=== PATIENT | female | born 1990 | race Caucasian/White ===

== ENCOUNTER 2019-08-03 08:15 | Outpatient (RCR) | payer OTHER, SELFPAY ==
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
--- NOTE | 2019-07-07 15:58 | PT.OPPOC ---
Physical, Occupational & Speech Therapy At [facility] Current Diagnoses Low back pain (07/07/19) Visit Care Team Role Provider Type Amy Ramirez MD Attending Provider Physician Primary Care Provider Specialty: Family Practice Address: [address] [place] [address], [facility] [place], [address] Email: [email or web address] Plan Of Care PT-OP-T Assessment and Plan Start: 07/07/19 11:34 Freq: Status: Active Protocol: Document 07/07/19 13:00 MB (Rec: 07/07/19 15:58 MB [id number]) Physical Therapy Assessment Rehab Potential Rehabilitation Potential Excellent Evaluation Complexity Number of Personal Factors/Comorbidities 1-2 Number of Body Systems Impaired 1-2 Clinical Presentation at Evaluation Evolving Impairments Other Impairments Pt is currently weaning off multiple medications and is hoping to start to try to get in the next 6 weeks. Goals No HEP Technician Semiconductor Development Goal (LTG) Pt will perform progressive HEP including pelvic realignment, postural, flexibility, core, pelvic floor and LE strengthening with I to decrease pain by . LTG Duration 8 weeks Weakness Correction Goal (LTG) Pt will present with B hip flexion and abduction MMT to 5 /5 to improve body mechanics by 09/05/2019. LTG Duration 8 weeks Pain Correction Goal (LTG) Pt will report an 85% improvement in pain to improve quality of life by 09/05/2019. LTG Duration 8 weeks Pain with functional activities Correction Goal (LTG) Pt will present with QuickDASH score reflecting no more than 5% impairment to allow return to work and exercise activities by 09/05/2019. LTG Duration 8 weeks Assessment Summary Assessment Pt is a 29 y/o female presenting presenting with chronic back pain. She initially reports globalized LBP but then isolates to her left thoracic paraspinal area. She presents with postural changes and pelvic obliquities . She also presents with LE weakness and myofascial changes. She will benefit from PT to improve myofascial tension, flexibility and strength. Pt states that she will let therapist know if she gets during PT course. Pelvic floor grinder will also be involved in pt treatment in order to include any pelvic floor/ orthopedic physical therapy as appropriate. Physical Therapy Plan Frequency and Duration Frequency of Treatment 2x/Week Duration of Treatment 8 weeks Plan of Care Start Date 07/07/19 Plan of Care End Date 09/05/19 Therapeutic Interventions Therapeutic Interventions Aquatic Therapy,Balance Training,Home Exercise Program ,Joint Mobilizations,Manual Therapy,Neuromuscular Re- education,Patient/Caregiver Education,Self-Care/Home Management,Sensory Integration ,Soft Tissue Mobilization, Taping,Therapeutic Activities, Therapeutic Exercises Modalities Cold Pack/Ice Massage,Hot Packs Next Visit Focus/Plan Next Note Type Treatment Note Next Visit Plan Initiate pelvic realignment and STM with jarocho fernandes Plan of Care Dates Plan of Care Start Date 07/07/19 Plan of Care End Date 09/05/19 Electronically Signed by: Dodie Ramsey, PT 07/07/19 1198 Please Sign and Return: I have reviewed this Plan of Care and certify that the skilled therapy services above are required to meet the patient?s needs. Physician Signature Date Printed Name and Credentials Clinical Instructor Signature Printed Name and Credentials
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
--- NOTE | 2019-07-13 13:44 | PT-OP ANOTE ---
Pt no showed her appointment today 07/13/19.
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
== END 2019-08-08 13:05 ==
LOC: PHYS 08:15
PROVIDERS: PCP Student in an Organized Health Care Education/Training Program; Visit Provider Student in an Organized Health Care Education/Training Program
DX: M54.5 Low back pain (principal)
CPT/HCPCS: 97110; 97112; 97140; 97161

== ENCOUNTER → 2020-01-13 09:40 | Outpatient (CLI) | payer OTHER, SELFPAY ==
--- NOTE | 2020-01-13 09:43 | DI.US.S_ITS ---
PROCEDURE: US PELVIC COMPLETE INDICATIONS: AMENORRHEA TECHNIQUE: Real-time scanning was performed of the pelvic organs, with image documentation. Additional endovaginal scanning was necessary due to incomplete visualization of the adnexal and endometrial structures by transabdominal scanning. COMPARISON: None. FINDINGS: Transabdominal scanning: Limited scanning through the kidneys shows no hydronephrosis. No pathologic free abdominal or pelvic fluid. Endovaginal scanning: Uterus: Uterus is normal in size at 7.9 x 3.9 x 4.2 cm. The endometrium measures 11 mm in combined thickness. Increased vascularity involving the myometrium. Ovaries: Right ovary measures 5.0 x 2.1 x 2.9 cm and left ovary measures 5.2 x 2.5 x 4.0 cm. There are greater than 12 sub 5 mm follicular cysts present bilaterally. IMPRESSION: 1. Increased vascularity involving the myometrium which can be associated with adenomyosis. If indicated, pre and post contrast gynecologic protocol MRI could be performed for further assessment. 2. Greater than 12 sub-5 mm follicular cysts bilaterally which can be associated with polycystic ovarian syndrome. Dictated by: Vasu JOHNSON Interpreted: Kenisha Chan MD on 01/13/2020 at 12:22 Approved by: Kenisha Chan M.D. on 01/13/2020 at 15:05
== END ==
PROVIDERS: PCP Student in an Organized Health Care Education/Training Program; Referring Provider Obstetrics & Gynecology; Visit Provider Student in an Organized Health Care Education/Training Program
DX: N91.2 Amenorrhea, unspecified (principal); N83.02 Follicular cyst of left ovary; N83.01 Follicular cyst of right ovary
CPT/HCPCS: 76830; 76856

== ENCOUNTER → 2020-01-24 11:31 | Outpatient (CLI) | payer OTHER, SELFPAY ==
[2020-01-24 12:44] LABS: Free T4, Direct Thyroxine 0.81 ng/dL (0.78-2.19)
[2020-01-24 12:45] LABS: Follicle Stimulating Hormone 5.02 mIU/mL
== END ==
PROVIDERS: PCP Student in an Organized Health Care Education/Training Program; Referring Provider Obstetrics & Gynecology; Visit Provider Obstetrics & Gynecology
DX: E28.2 Polycystic ovarian syndrome (principal)
CPT/HCPCS: 36415; 83001; 83002; 84439; 84443

== ENCOUNTER → 2020-03-17 08:17 | Outpatient (CLI) | payer OTHER, SELFPAY ==
--- NOTE | 2020-03-17 | DI.MRI.S_ITS ---
PROCEDURE: MR LUMBAR SPINE WO CON INDICATIONS: Low back pain TECHNIQUE: Noncontrast sagittal T1 spin echo and T2 fast echo, sagittal STIR, axial T1 and T2 fast spin echo through the lumbar spine. In cases with scoliosis, additional coronal T2 fast spin echo may be performed. COMPARISON: None. FINDINGS: Image quality: Excellent. Alignment and Curvature: There is normal bony alignment. Bone Marrow: Marrow is of normal overall signal. No acute vertebral body compression fractures. Spinal Cord: Conus medullaris terminates at the L1 level. Visualized cord demonstrates normal signal and size. Paraspinous Soft Tissues: No paravertebral masses. L1-L2: Normal appearance. L2-L3: Normal appearance. L3-L4: Normal appearance. L4-L5: Normal appearance. L5-S1: Posterior annular fissure. Central disc protrusion is present. There is mild canal narrowing. Partial effacement of both lateral recesses with bilaterally symmetric appearance. No definite foraminal stenosis. IMPRESSION: L5-S1 disc degeneration and mild canal narrowing. No definite foraminal stenosis Dictated by: Noah Sierra M.D. on 03/19/2020 at 10:57 Approved by: Noah Sierra M.D. on 03/19/2020 at 11:00
== END ==
PROVIDERS: PCP Student in an Organized Health Care Education/Training Program; Referring Provider Student in an Organized Health Care Education/Training Program; Visit Provider Student in an Organized Health Care Education/Training Program
DX: M54.5 Low back pain (principal); M51.37 Other intervertebral disc degeneration, lumbosacral region; M48.07 Spinal stenosis, lumbosacral region
CPT/HCPCS: 72148

== ENCOUNTER → 2020-06-14 11:14 | Outpatient (CLI) | payer OTHER, SELFPAY ==
[2020-06-14 12:27] LABS: Final Volume 0.5 mL; Semen 30 min. Liquification? Yes
== END ==
PROVIDERS: PCP Student in an Organized Health Care Education/Training Program; Referring Provider Obstetrics & Gynecology; Visit Provider Obstetrics & Gynecology
DX: N83.9 Noninflammatory disorder of ovary, fallopian tube and broad ligament, unspecified (principal)
CPT/HCPCS: 58323

== ENCOUNTER → 2020-07-02 13:22 | Outpatient (CLI) | payer OTHER, SELFPAY ==
[2020-07-02 16:48] LABS: HCG Quantitative /Beta subunit 1163.9 mIU/mL
== END ==
PROVIDERS: PCP Student in an Organized Health Care Education/Training Program; Referring Provider Obstetrics & Gynecology; Visit Provider Obstetrics & Gynecology
DX: Z34.01 Encounter for supervision of normal first pregnancy, first trimester (principal)
CPT/HCPCS: 36415; 84702

== ENCOUNTER → 2020-07-04 13:13 | Outpatient (CLI) | payer OTHER, SELFPAY ==
[2020-07-04 16:30] LABS: HCG Quantitative /Beta subunit 2640 mIU/mL
== END ==
PROVIDERS: PCP Student in an Organized Health Care Education/Training Program; Referring Provider Obstetrics & Gynecology; Visit Provider Obstetrics & Gynecology
DX: Z34.01 Encounter for supervision of normal first pregnancy, first trimester (principal)
CPT/HCPCS: 36415; 84702

== ENCOUNTER → 2020-08-07 12:10 | Outpatient (CLI) | payer OTHER, SELFPAY ==
[2020-08-07 12:58] LABS: Add Manual Diff / Slide Review NO; Basophils Absolute Auto 0 /uL (0-100); Basophils Percent Auto 0.3 % (0-2); Eosinophils Absolute Auto 100 /uL (0-450); Eosinophils Percent Auto 0.7 % (2-4); Hematocrit 36.4 % (36-46); Hemoglobin 12.5 g/dL (12.0-16.0); Lymphocytes Absolute Auto 2400 /uL (1100-4500); Lymphocytes Percent Auto 22.5 % (25-40); Mean Corpuscular HGB Conc 34.4 % (30-36); Mean Corpuscular Hemoglobin 30.6 PG (26-34); Mean Corpuscular Volume 88.9 fL (80-100); Monocytes Absolute Auto 700 /uL (0-900); Monocytes Percent Auto 6.5 % (3-14); Neutrophils Absolute Auto 7600 /uL (1500-7000); Platelet Count 388 X10^3/uL (150-400); Red Cell Distribution Width 12.5 % (11.6-14.8); White Blood Cell Count 10.8 X10^3/uL (4.5-11.0)
[2020-08-07 13:09] LABS: Appearance Urine UA CLEAR; Bilirubin Urine UA NEGATIVE (NEGATIVE); Color Urine UA YELLOW; Glucose Urine UA NEGATIVE (Negative); Ketones Urine UA NEGATIVE (NEGATIVE); Leukocyte Esterase Urine UA NEGATIVE (NEGATIVE); Nitrite Urine UA NEGATIVE (Negative); Occult Blood Urine UA NEGATIVE (Negative); Protein Urine UA NEGATIVE (Negative); Specific Gravity Urine UA 1.015 (1.000-1.035); Urobilinogen Urine UA 0.2 E.U./dL (0.2)
[2020-08-07 13:16] LABS: pH Urine UA 6.5 (4.5-8.0)
[2020-08-08 08:09] LABS: RPR Screen Non Reactive (Non Reactive)
[2020-08-08 08:44] LABS: Varicella IgG Antibody 663 index (Immune >165)
[2020-08-09 16:45] LABS: HIV 1 & 2 Ab/Ag 4th Gen Combo NEGATIVE (NEGATIVE); Hep C Virus Ab w/Reflex Quant NEGATIVE s/c (NEGATIVE); Hepatitis B Surface Antigen NEGATIVE s/c (NEGATIVE); Rubella Antibody IgG 78.8 IU/mL (>15)
== END ==
PROVIDERS: PCP Student in an Organized Health Care Education/Training Program; Referring Provider Obstetrics & Gynecology; Visit Provider Obstetrics & Gynecology
DX: Z34.01 Encounter for supervision of normal first pregnancy, first trimester (principal); Z36.0 Encounter for antenatal screening for chromosomal anomalies; E28.2 Polycystic ovarian syndrome; N83.9 Noninflammatory disorder of ovary, fallopian tube and broad ligament, unspecified
CPT/HCPCS: 36415; 80055; 81003; 81420; 86787; 86803; 86850; 86900; 86901; 87086; 87389

== ENCOUNTER → 2020-09-05 09:28 | Outpatient (CLI) | payer OTHER, SELFPAY ==
[2020-09-07 00:56] LABS: Chlamydia trachomatis NAA Negative (Negative); Neisseria gonorrhoeae NAA Negative (Negative)
== END ==
PROVIDERS: PCP Student in an Organized Health Care Education/Training Program; Visit Provider Obstetrics & Gynecology
DX: Z34.82 Encounter for supervision of other normal pregnancy, second trimester (principal); Z3A.14 14 weeks gestation of pregnancy
CPT/HCPCS: 87491; 87591

== ENCOUNTER → 2020-09-11 10:25 | Outpatient (CLI) | payer OTHER, SELFPAY ==
[2020-09-11] MEDS: COVID-19 VACC #1, MRNA(MOD) 100 MCG/0.5 ML VIAL IM (10:43)
== END ==
PROVIDERS: PCP Student in an Organized Health Care Education/Training Program; Visit Provider Internal Medicine
DX: Z23 Encounter for immunization (principal)
CPT/HCPCS: 0011A; 91301

== ENCOUNTER → 2020-10-03 09:35 | Outpatient (CLI) | payer OTHER, SELFPAY ==
[2020-10-03 14:11] LABS: Urine N gonorrhoeae NOT DETECTED
[2020-10-03 14:30] LABS: Urine Chlamydia NOT DETECTED
[2020-10-06 20:07] LABS: AFP Value 47.1 ng/mL (.); Gest Age on Col Date 18.4 weeks (.); Insulin Dep Diabetes No (.); OSBR Risk 1IN 10000 (.); Results Report (.); Test Results *Screen Negative* (.)
== END ==
PROVIDERS: PCP Student in an Organized Health Care Education/Training Program; Referring Provider Obstetrics & Gynecology; Visit Provider Obstetrics & Gynecology
DX: Z34.82 Encounter for supervision of other normal pregnancy, second trimester (principal); Z3A.18 18 weeks gestation of pregnancy
CPT/HCPCS: 36415; 82105; 87491; 87591

== ENCOUNTER → 2020-10-10 09:52 | Outpatient (CLI) | payer OTHER, SELFPAY ==
[2020-10-10] MEDS: COVID-19 VACC #2, MRNA(MOD) 100 MCG/0.5 ML VIAL IM (10:05)
== END ==
PROVIDERS: PCP Student in an Organized Health Care Education/Training Program; Visit Provider Internal Medicine
DX: Z23 Encounter for immunization (principal)
CPT/HCPCS: 0012A; 91301

== ENCOUNTER → 2020-10-18 14:14 | Outpatient (CLI) | payer OTHER, SELFPAY ==
--- NOTE | 2020-10-18 14:16 | DI.US.S_ITS ---
PROCEDURE: US OB >= 14 WEEKS FETUS INDICATIONS: ANATOMY OUTSIDE/PRIOR DATING DATA: Last menstrual period (LMP): 05/28/2020. LMP-based estimated date of delivery (GRACE): 03/04/2021 . First dating scan (date and location): 10/18/2020 . Estimated date of delivery (GRACE) from first dating scan: 02/25/2021 . TECHNIQUE: Real-time scanning was performed of the fetus, with image documentation and biometric measurements. Endovaginal scanning: No COMPARISON: [facility], , OB >= 14 WEEKS FETUS, 08/07/2020, 12:05. FINDINGS: General: A single living intrauterine gestation is present. Presentation: Vertex. Placenta: Placental position is anterior , without previa. Amniotic fluid index: 18.2 cm, normal range is 5-24 cm. heart rate: 147 beats per minute. Maternal cervical canal: 3.1 cm long. Normal lower limit is 2.5 cm. biometrics: Biparietal diameter: 21 weeks 5 days Head circumference: 21 weeks 6 days Abdominal circumference: 21 weeks Femur length: 20 weeks 6 days Estimated gestational age from initial scan: not applicable. Composite gestational age from present scan: 21 weeks 3 days Estimated weight and percentile: 397 g; 80th percentile Measurement variability for biometric dating: +/- 7 days from 14 weeks to 15 weeks 6 days gestation, +/- 10 days from 16 weeks to 21 weeks 6 days gestation, +/- 2 weeks from 22 weeks to 27 weeks 6 days gestation, +/- 3 weeks for 28 weeks gestation or later. weight reference: 4500 g or EFW >90/95% is considered macrosomia or large for gestational age. EFW <10% is small for gestational age. EFW 5% or less is considered intra-uterine growth restriction. Anatomic survey: Neuro: Ventricles are non-dilated at less than 10 mm. Cisterna magna is normal at 3-11 mm. Cerebellum is normal in size and morphology. Nuchal skin fold: Normal at less than 6 mm between 14-21 weeks gestational age. Face: Suboptimally visualized. Spine: No evidence for spina bifida. Heart: 4-chambered heart is present, with normal ventricular outflow tracts. Diaphragm: Diaphragm is intact. Stomach: Left-sided stomach is present. Kidneys: No hydronephrosis. Normal is less than 5 mm in 2nd trimester, less than 7 mm in 3rd trimester. Cord: 3-vessel cord has orthotopic insertion. Bladder: Normal in size. Extremities: All 4 extremities identified. IMPRESSION: 1. Single living IUP with mean composite gestational age of 21 weeks 3 days corresponding to ultrasound GRACE of 02/25/2021. 2. face suboptimally visualized; otherwise normal anatomy. Follow-up recommended. Dictated by: Vasu Astorga [facility] Interpreted: Michelle Javier MD on 10/18/2020 at 15:30 Approved by: Michelle Javier MD, PhD on 10/18/2020 at 17:53
== END ==
PROVIDERS: PCP Student in an Organized Health Care Education/Training Program; Referring Provider Obstetrics & Gynecology; Visit Provider Obstetrics & Gynecology
DX: Z34.82 Encounter for supervision of other normal pregnancy, second trimester (principal); Z3A.21 21 weeks gestation of pregnancy
CPT/HCPCS: 76811

== ENCOUNTER → 2020-11-28 10:51 | Outpatient (CLI) | payer OTHER, SELFPAY ==
[2020-11-28 13:00] LABS: Hematocrit 34.4 % (36-46); Hemoglobin 11.5 g/dL (12.0-16.0)
[2020-11-28 13:23] LABS: GTT (PREG) 1 Hour PP 50gm Dose 121 mg/dL (76-139)
== END ==
PROVIDERS: PCP Student in an Organized Health Care Education/Training Program; Referring Provider Obstetrics & Gynecology; Visit Provider Obstetrics & Gynecology
DX: Z34.82 Encounter for supervision of other normal pregnancy, second trimester (principal); Z3A.26 26 weeks gestation of pregnancy
CPT/HCPCS: 36415; 82950; 85014; 85018

== ENCOUNTER 2020-12-28 11:22 | Observation (INO) | payer OTHER, SELFPAY ==
[2020-12-28 11:51] LABS: Bacteria Urine Many (>30); RBC Urine 0-1/HPF (0-5/HPF); Squamous Epithelial Cell Urine 5-10 /HPF (0-5/HPF); WBC Urine 10-30/HPF (0-5/HPF)
--- NOTE | 2020-12-28 13:28 | DI.US.S_ITS ---
PROCEDURE: US OB LIMITED INDICATIONS: PREMATURE CONTRACTIONS. CERVICAL LENGTH/JHOAN/GROWTH/POSITION OUTSIDE/PRIOR DATING DATA: Last menstrual period (LMP): 05/28/2020 . LMP-based estimated date of delivery (GRACE): 03/04/2021 First dating scan (date and location): 10/18/2020 Estimated date of delivery (GRACE) from first dating scan: 03/07/2021 TECHNIQUE: Real-time scanning was performed of the fetus, with image documentation and biometric measurements. Biophysical profile was also obtained. Endovaginal scanning: No COMPARISON: [facility], OB >= 14 WEEKS FETUS, 10/18/2020, 14:24. FINDINGS: General: A single living intrauterine gestation is present. Presentation: Vertex Placenta: Placental position is anterior without previa. Amniotic fluid index: 21.5 cm, normal range is 5-24 cm. heart rate: 139 beats per minute. Maternal cervical canal: 2.2 cm long. Normal lower limit is 2.5 cm. biometrics: Biparietal diameter: 80 mm; 32 weeks 2 days Head circumference: 289 mm; 31 weeks 5 days Abdominal circumference: 283 mm; 32 weeks 2 days Femur length: 62 mm; 32 weeks 0 days Estimated gestational age from initial scan: 31 weeks 4 days Composite gestational age from present scan: 32 weeks 1 day Estimated weight and percentile: 1914 g, which is at the 58th percentile for gestational age Measurement variability for biometric dating: +/- 7 days from 14 weeks to 15 weeks 6 days gestation, +/- 10 days from 16 weeks to 21 weeks 6 days gestation, +/- 2 weeks from 22 weeks to 27 weeks 6 days gestation, +/- 3 weeks for 28 weeks gestation or later. weight reference: 4500 g or EFW >90/95% is considered macrosomia or large for gestational age. EFW <10% is small for gestational age. EFW 5% or less is considered intra-uterine growth restriction. Survey of anatomy currently includes normal chest/diaphragm, stomach/abdomen, bilateral renal regions, and urinary bladder/pelvis. IMPRESSION: 1. Single living intrauterine gestation. 2. Cervical shortening as described above. 3. Appropriate interval growth. Dictated by: Bryan Magallon M.D. on 12/28/2020 at 15:20 Approved by: Bryan Magallon M.D. on 12/28/2020 at 15:25
[2020-12-28] MEDS: BETAMETHASONE 30 MG/5 ML MDV 12 MG IM (14:54)
[2020-12-28 15:16] LABS: Fetal Fibronectin Positive
--- NOTE | 2020-12-28 15:20 | PM.OBHP.1 ---
OB HPI Date/Time Date of admission: 12/28/20 Date Patient Seen: 12/28/20 Time Patient Seen: 15:20 History of Present Condition Chief complaint: OBSERVATION : 2 Para: 0 Estimated Date of Delivery: 03/04/21 Estimated Gestational Age (weeks): 30 Narrative: Brenda Malin is a 30 year old @30+4 by known IUI date consistent with 6 week US, presenting in threatened labor. The patient reports that she began having irregular but increasingly painful contractions this AM, with decreased movement though no vaginal bleeding or loss of fluid. As the contractions became more regular, she presented to L&D for evaluation. She continues to report no VB or LOF, denies fevers, chills, nausea, vomiting, diarrhea, UTI symptoms, headaches, visual changes, abdominal trauma, or any other symptoms. Her has been otherwise uncomplicated, with a normal cervical length of 3.1cm on anatomy scan. She has a history of elective termination in 2014 that was otherwise uncomplicated, and reports a history of abnormal pap smear leading to colposcopy but no cervical conization or other electrophysiology nurse practitioner surgery. This was conceived via IUI due to a history of PCOS. She denies any other significant medical, surgical, family, or social history. Patient denies anything in the vagina in the past 24 hours. History of Present care: good care and initiated at week # (6) Dating criteria: LMP confirmed by 1st trimester US Obstetrical complications: labor Preadmission Labs Blood type: B (+) positive -: Antibody screen: negative, GBS status: unknown (pending), HBsAG: negative, HIV: negative and RPR/VDLR: negative -: Rubella: immune and Varicella: immune PAP: Normal Cell-free DNA: low risk, male fetus Urine: No growth Prior (ies) History: G1: 07/23/14, 8.5 wks, elective , Evaluation Evaluation Baseline heart rate: 145 Variability: Moderate (11-25) monitor accelerations: Present Monitor Decelerations: Variable (rare) Contraction Frequency (minutes): 2 Uterine Contraction Intensity: Strong/Firm Category of Tracing: Reactive Status: Category l Cervical dilation (cm): 1 Cervical effacement (%): 50 station: -1 (soft, mid position) Laboratory results: Laboratory Tests 12/28/20 12/28/20 11:30 13:45 Urine RBC 0-1/hpf Urine WBC 10-30/hpf H Ur Squamous Epith Cells 5-10 /hpf H Urine Bacteria Many (>30) H Ur Culture Indicated? Culture not indicate Micro UA Comment Fibronectin Positive H Comments: brown mucousy show on speculum exam [facility] Medical History ADHD Anxiety Degeneration of lumbar intervertebral disc Disorder of ovulation Polycystic ovaries Surgical History History of elective (~07/2014) Family History Mother No known health problems Preeclampsia Placental abnormality Father Overdose Adopted Grandmother Cancer Breast cancer Grandfather Diabetes mellitus Myocardial infarction Grandmother No known health problems Grandfather No known health problems Family/Other Gestational diabetes PCOS (polycystic ovarian syndrome) Hypertension Family/Other Addiction to drug Brother Mental health problem Social History marital status: household members: spouse lives independently: Yes pets and animals: Yes (X 2 cats and discussed : aware ) 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 ) second hand exposure: No alcohol intake: former (pre- : daily) substance use type: does not use Meds Home Medications and Allergies Home Medications Medication Instructions Recorded Confirmed Type docosahexaenoic acid 200 mg mg PO 07/10/20 11/28/20 History capsule ( DHA) prenat.vits,lin,cdi-tyga-cigam 1 tab PO DAILY 07/10/20 11/28/20 History pantoprazole 40 mg tablet,delayed 40 mg PO DAILY #30 tab 11/28/20 11/28/20 Rx release (Protonix) Allergies Allergy/AdvReac Type Severity Reaction Status Date / Time latex [LATEX] Allergy Unknown RASH Unverified 11/28/20 10:28 Review of Systems Constitutional Constitutional: Reports system reviewed and no additional complaints, except as documented Cardiovascular Cardiovascular: Reports system reviewed and no additional complaints, except as documented Respiratory Respiratory: Reports system reviewed and no additional complaints, except as documented Gastrointestinal Gastrointestinal: Reports as per HPI Genitourinary Genitourinary: Reports as per HPI Neurologic Neurologic: Reports as per HPI Exam Vital Signs (past 8 hours): 133/83, HR 97, T 36.4C, O2 97% on RA Narrative Exam Narrative: Patient resting in bed, visibly anxious, breathing through contractions. Const General: cooperative, healthy appearing, comfortable and well groomed Orientation: alert, awake and oriented x3 Resp Effort & Inspection: normal respiratory effort Auscultation: clear to auscultation bilaterally Cardio Rate: regular rate Rhythm: regular rhythm GI Palpation: soft and No tender Other: Bedside TAUS: Estimated weight and percentile 1914 g, which is at the 58th percentile. JHOAN 25.5. Cervix 2.2cm. External Female Exam: normal external appearance Speculum Exam - Vagina: normal appearance of the vagina and other (brown mucousy blood mixed with mucus ) Presentation: vertex Skin General: no rashes or lesions noted Extrem General: normal to inspection Objective Labs Labs: Laboratory Results - last 24 hr 12/28/20 12/28/20 11:30 13:45 Urine RBC 0-1/hpf Urine WBC 10-30/hpf H Ur Squamous Epith Cells 5-10 /hpf H Urine Bacteria Many (>30) H Ur Culture Indicated? Culture not indicate Micro UA Comment Fibronectin Positive H Assessment and Plan Assessment and Plan Assessment and Plan narrative: This patient is a 30yo @30+4 by known IUI confirmed with 6 week US, presenting with increasingly painful contractions, shortened cervix, and positive FFN concerning for labor. The patient's contractions are increasingly painful and now q2 on L&D, the patient has no signs of infection or abruption, and her contractions have not responded to PO or IV hydration or attempted tocolysis with magnesium sulfate. Given the patient's gestational age and high clinical concern for labor, she is being prepared for transfer to a tertiary care center with a NICU available. The fetus is in vertex presentation with no signs of PPROM. - magnesium sulfate 4g/20 min followed by 2g/hr - 12mg IM betamethasone, 1st dose administered at 1454 on 12/28/20 - PCN 5,000,000u IV loading dose administered now - CBC, T&S, GBS PCR, covid tests pending - IV fluids- LR @125ccs/hr ongoing - Rudolph in place
[2020-12-28 15:30] VITALS: BP 133/83
[2020-12-28] MEDS: MAGNESIUM SULFATE 4 GM/100 ML PIGGYBACK IV (15:43)
[2020-12-28] MEDS: LACTATED RINGERS 1,000 ML 125 ML IV (15:45)
[2020-12-28] MEDS: PENICILLIN G POTASSIUM 5,000,000 UNIT in DEXTROSE 5% IN WATER 250 ML IV (15:58)
[2020-12-28 16:04] LABS: Add Manual Diff / Slide Review YES; Hematocrit 37.4 % (36-46); Hemoglobin 12.7 g/dL (12.0-16.0); Mean Corpuscular HGB Conc 33.9 % (30-36); Mean Corpuscular Hemoglobin 30.8 PG (26-34); Mean Corpuscular Volume 90.8 fL (80-100); Platelet Count 379 X10^3/uL (150-400); Red Blood Cell Count 4.12 X10^6/uL (4.0-5.2); Red Cell Distribution Width 13.5 % (11.6-14.8); White Blood Cell Count 25.8 X10^3/uL (4.5-11.0)
[2020-12-28] MEDS: MAGNESIUM SULFATE 20 GM/500 ML IV.SOLN IV (16:14)
[2020-12-28 16:48] LABS: Neutrophils Absolute Manual 23220 /uL (3000-5900); Total Cells Counted 100
[2020-12-28 16:49] LABS: RBC Morphology Normal Morphology
[2020-12-28 17:08] LABS: Strep Grp B PCR POS for Grp B Strep
[2020-12-28 17:32] LABS: Lactate Dehydrogenase 393 U/L (313-618)
[2020-12-28 17:54] LABS: Bacteria Urine None Seen
[2020-12-28 17:58] LABS: Appearance Urine UA CLEAR; Bilirubin Urine UA NEGATIVE (NEGATIVE); Color Urine UA YELLOW; Glucose Urine UA NEGATIVE (Negative); Ketones Urine UA 2+ (NEGATIVE); Leukocyte Esterase Urine UA NEGATIVE (NEGATIVE); Nitrite Urine UA NEGATIVE (Negative); Occult Blood Urine UA 1+ (Negative); Protein Urine UA NEGATIVE (Negative); Urobilinogen Urine UA 0.2 E.U./dL (0.2)
[2020-12-28 18:00] LABS: pH Urine UA 6.5 (4.5-8.0)
[2020-12-28 18:02] LABS: COVID19 - ADMIT (NP swab/PCR) Negative (Negative)
[2020-12-28 18:08] LABS: RBC Urine 1-5/HPF (0-5/HPF); WBC Urine 0-1/HPF (0-5/HPF)
[2020-12-28 18:09] LABS: Culture Indicated Urine Cult Not Indicated; Squamous Epithelial Cell Urine 0-1 /HPF (0-5/HPF)
== END 2020-12-28 17:30 | disposition short-term general hospital (02) ==
PROVIDERS: Obstetrics & Gynecology; Admitting Provider Obstetrics & Gynecology; PCP Student in an Organized Health Care Education/Training Program; Referring Provider Obstetrics & Gynecology; Visit Provider Obstetrics & Gynecology
DX: O47.03 False labor before 37 completed weeks of gestation, third trimester (principal); Z3A.30 30 weeks gestation of pregnancy; Z20.822 Contact with and (suspected) exposure to COVID-19
CPT/HCPCS: 36415; 59025; 59050; 76815; 76817; 81001; 81015; 82731; 83615; 85007; 85025; 86850; 86900; 86901; 87086; 87635; 87653; 96360; 96372; C9803; G0378; G0379; J0702; J2540; J3475

== ENCOUNTER → 2022-03-31 15:10 | Outpatient (CLI) | payer OTHER, SELFPAY ==
[2022-03-31 18:02] LABS: HCG Quantitative /Beta subunit 17520 mIU/mL
== END ==
PROVIDERS: PCP Student in an Organized Health Care Education/Training Program; Referring Provider Obstetrics & Gynecology; Visit Provider Obstetrics & Gynecology
DX: Z34.90 Encounter for supervision of normal pregnancy, unspecified, unspecified trimester (principal)
CPT/HCPCS: 36415; 84702

== ENCOUNTER → 2022-04-02 12:02 | Outpatient (CLI) | payer OTHER, SELFPAY ==
[2022-04-02 15:22] LABS: HCG Quantitative /Beta subunit 25023 mIU/mL
== END ==
PROVIDERS: PCP Student in an Organized Health Care Education/Training Program; Referring Provider Obstetrics & Gynecology; Visit Provider Obstetrics & Gynecology
DX: Z34.90 Encounter for supervision of normal pregnancy, unspecified, unspecified trimester (principal)
CPT/HCPCS: 36415; 84702

== ENCOUNTER → 2022-04-10 08:38 | Outpatient (CLI) | payer OTHER, SELFPAY ==
--- NOTE | 2022-04-10 08:39 | DI.US.S_ITS ---
PROCEDURE: US OB <= 14 WEEKS FETUS INDICATIONS: DATING AND VIABILITY OUTSIDE/PRIOR DATING DATA: Last menstrual period (LMP): 01/22/2022. LMP-based estimated date of delivery (GRACE): 10/29/2022. First dating scan (date and location): 04/10/2022. Estimated date of delivery (GRACE) from first dating scan: 11/27/2022. TECHNIQUE: Real-time scanning was performed of the fetus and maternal pelvic organs, with image documentation. Endovaginal scanning was also performed to better visualize the fetus and maternal ovaries. COMPARISON: [facility], US, US OB <= 14 WEEKS FETUS, 07/19/2020, 15:03. FINDINGS: Embryo: Single live intrauterine is identified with crown-rump length measuring 1 cm corresponding to 7 weeks 0 days. Heart rate: 143 beats per minute. Maternal organs: Ovaries demonstrate presumed corpus luteal left ovarian cysts.. IMPRESSION: Single live intrauterine measuring 7 weeks 0 days. Given discrepancy by clinical versus ultrasound dating, short interval imaging follow-up for additional interval growth is recommended as clinically indicated. We strive to produce accurate, complete, and clear reports of imaging services. To assist us in improving patient care, this report was composed using standard report templates and voice recognition software. Therefore, it may contain abnormal punctuation, insertions and/or omissions. Occasional wrong-word or sound-alike substitutions may occur. Though we review the report and make efforts to correct it, we do recommend that the report be read carefully in proper context to recognize any text inaccuracies. Dictated by: Kenisha Chan M.D. on 04/10/2022 at 9:59 Approved by: Kenisha Chan M.D. on 04/10/2022 at 13:10
== END ==
PROVIDERS: PCP Student in an Organized Health Care Education/Training Program; Referring Provider Obstetrics & Gynecology; Visit Provider Obstetrics & Gynecology
DX: Z36.87 Encounter for antenatal screening for uncertain dates (principal); Z3A.01 Less than 8 weeks gestation of pregnancy
CPT/HCPCS: 76801; 76817

== ENCOUNTER → 2022-04-29 10:56 | Outpatient (CLI) | payer OTHER, SELFPAY ==
[2022-04-29 12:02] LABS: Add Manual Diff / Slide Review NO; Basophils Absolute Auto 0 /uL (0-100); Basophils Percent Auto 0.4 % (0-2); Eosinophils Absolute Auto 100 /uL (0-450); Eosinophils Percent Auto 0.7 % (2-4); Hematocrit 36.5 % (36-46); Hemoglobin 12.6 g/dL (12.0-16.0); Lymphocytes Absolute Auto 2500 /uL (1100-4500); Lymphocytes Percent Auto 23.9 % (25-40); Mean Corpuscular HGB Conc 34.4 % (30-36); Mean Corpuscular Hemoglobin 29.4 PG (26-34); Mean Corpuscular Volume 85.4 fL (80-100); Monocytes Absolute Auto 500 /uL (0-900); Monocytes Percent Auto 5.2 % (3-14); Neutrophils Absolute Auto 7300 /uL (1500-7000); Neutrophils Percent Auto 69.8 % (50-75); Platelet Count 387 X10^3/uL (150-400); Red Blood Cell Count 4.28 X10^6/uL (4.0-5.2); White Blood Cell Count 10.5 X10^3/uL (4.5-11.0)
[2022-04-29 13:03] LABS: Hepatitis B Surface Antigen NEGATIVE s/c (NEGATIVE)
[2022-04-29 13:35] LABS: HIV 1 & 2 Ab/Ag 4th Gen Combo NEGATIVE (NEGATIVE); Hep C Virus Ab w/Reflex Quant NEGATIVE s/c (NEGATIVE)
[2022-04-29 21:01] LABS: Appearance Urine UA CLOUDY; Bilirubin Urine UA NEGATIVE (NEGATIVE); Color Urine UA YELLOW; Glucose Urine UA NEGATIVE (Negative); Ketones Urine UA NEGATIVE (NEGATIVE); Leukocyte Esterase Urine UA NEGATIVE (NEGATIVE); Nitrite Urine UA NEGATIVE (Negative); Occult Blood Urine UA NEGATIVE (Negative); Protein Urine UA NEGATIVE (Negative); Specific Gravity Urine UA >=1.030 (1.000-1.035); Urobilinogen Urine UA 0.2 E.U./dL (0.2)
[2022-04-30 05:33] LABS: RPR Screen Non Reactive (Non Reactive)
[2022-04-30 09:09] LABS: Varicella IgG Antibody 696 index (Immune >165)
== END ==
PROVIDERS: PCP Student in an Organized Health Care Education/Training Program; Referring Provider Obstetrics & Gynecology; Visit Provider Obstetrics & Gynecology
DX: Z34.81 Encounter for supervision of other normal pregnancy, first trimester (principal)
CPT/HCPCS: 36415; 80055; 81003; 86787; 86803; 86850; 86900; 86901; 87086; 87389

== ENCOUNTER → 2022-05-12 14:17 | Outpatient (CLI) | payer OTHER, SELFPAY ==
[2022-05-12 18:38] LABS: Urine N gonorrhoeae NOT DETECTED
[2022-05-12 18:39] LABS: Urine Chlamydia NOT DETECTED
== END ==
PROVIDERS: PCP Student in an Organized Health Care Education/Training Program; Visit Provider Obstetrics & Gynecology
DX: Z34.81 Encounter for supervision of other normal pregnancy, first trimester (principal); Z3A.11 11 weeks gestation of pregnancy
CPT/HCPCS: 87491; 87591

== ENCOUNTER → 2022-06-19 16:50 | Outpatient (CLI) | payer OTHER, SELFPAY ==
[2022-06-24 14:31] LABS: AFP Value 35.4 ng/mL (.); Gest Age on Col Date 17.1 weeks (.); Insulin Dep Diabetes No (.); OSBR Risk 1IN 10000 (.); Results Report (.); Test Results *Screen Negative* (.)
== END ==
PROVIDERS: PCP Student in an Organized Health Care Education/Training Program; Referring Provider Obstetrics & Gynecology; Visit Provider Obstetrics & Gynecology
DX: Z34.82 Encounter for supervision of other normal pregnancy, second trimester (principal); Z3A.17 17 weeks gestation of pregnancy
CPT/HCPCS: 36415; 82105

== ENCOUNTER → 2022-07-14 15:12 | Outpatient (CLI) | payer OTHER, SELFPAY ==
--- NOTE | 2022-07-14 15:14 | DI.US.S_ITS ---
PROCEDURE: US OB >= 14 WEEKS FETUS INDICATIONS: ANATOMY OUTSIDE/PRIOR DATING DATA: Last menstrual period (LMP): 01/22/22. LMP-based estimated date of delivery (GRACE): 10/29/22. First dating scan (date and location): 04/10/22. Estimated date of delivery (GRACE) from first dating scan: 11/27/22. The calculations are made using the ultrasound GRACE of 11/27/22. TECHNIQUE: Real-time scanning was performed of the fetus, with image documentation and biometric measurements. Endovaginal scanning: Not performed COMPARISON: [facility], , OB <= 14 WEEKS FETUS, 05/12/2022, 14:17[facility] OB >= 14 WEEKS FETUS, 10/18/2020, 14:24. FINDINGS: General: A single living intrauterine gestation is present. Presentation: Vertex. Placenta: Placental position is anterior , without previa. Amniotic fluid index: 15.9 cm, normal range is 5-24 cm. Single deepest vertical pocket is 4.8 cm. heart rate: 149 beats per minute. Maternal cervical canal: Closed and 3.4 cm long. Normal lower limit is 2.5 cm. biometrics: Biparietal diameter: 5.4 cm, 22 weeks, two days Head circumference: 19.9 cm, 22 weeks, 0 days Abdominal circumference: 16.9 cm, 21 weeks, six days Femur length: 3.7 cm, 21 weeks, four days Clinically estimated gestational age: 20 weeks, four days Composite gestational age from present scan: 22 weeks, 0 days Estimated weight and percentile: 452 g, 96th percentile Anatomic survey: Neuro: Ventricles are non-dilated at less than 10 mm. Cisterna magna is normal at 3-11 mm. Cerebellum is normal in size and morphology. Nuchal skin fold: Normal at less than 6 mm between 14-21 weeks gestational age. Face: Nose and lips, facial profile are normal. Spine: No evidence for spina bifida. Heart: 4-chambered heart is present, with normal ventricular outflow tracts. Diaphragm: Diaphragm is intact. Stomach: Left-sided stomach is present. Kidneys: No hydronephrosis. Normal is less than 5 mm in 2nd trimester, less than 7 mm in 3rd trimester. Cord: 3-vessel cord has orthotopic insertion. Bladder: Normal in size. Extremities: All 4 extremities identified. IMPRESSION: 1. Single living intrauterine with symmetric growth. 2. Composite gestational age by today's scan is 10 days ahead of the clinically assigned gestational age and estimated weight at the 96th percentile. 3. Normal anatomy. 4. Closed cervix and normal amniotic fluid volume. We strive to produce accurate, complete, and clear reports of imaging services. To assist us in improving patient care, this report was composed using standard report templates and voice recognition software. Therefore, it may contain abnormal punctuation, insertions and/or omissions. Occasional wrong-word or sound-alike substitutions may occur. Though we review the report and make efforts to correct it, we do recommend that the report be read carefully in proper context to recognize any text inaccuracies. Dictated by: Ct Pedersen M.D. on 07/14/2022 at 17:47 Approved by: Ct Pedersen M.D. on 07/14/2022 at 17:52
--- NOTE | 2022-08-03 22:41 | PM.CALLCOV.1 ---
Call Coverage Note Note Date of Patient Contact: 08/02/22 Time of Patient Contact: 09:00 Narrative of Care Provided: Brenda is a 23 week calling with complaints of nausea, vomiting and chills since last night. This if the first time she's had NVP this . Vomited twice. Feels awful. Unsure what to do. Baby moving well. Denies loss of fluid. No-one else in the house is sick with anything similar. Recommend going to urgent care for evaluation and medication for nausea and vomiting.
== END ==
PROVIDERS: PCP Student in an Organized Health Care Education/Training Program; Referring Provider Obstetrics & Gynecology; Visit Provider Obstetrics & Gynecology
DX: Z34.82 Encounter for supervision of other normal pregnancy, second trimester (principal); Z3A.20 20 weeks gestation of pregnancy
CPT/HCPCS: 76811

== ENCOUNTER → 2022-08-13 15:35 | Outpatient (CLI) | payer OTHER, SELFPAY ==
[2022-08-13 17:03] LABS: Hematocrit 32.4 % (36-46)
[2022-08-13 17:21] LABS: GTT (PREG) 1 Hour PP 50gm Dose 96 mg/dL (76-139)
== END ==
PROVIDERS: PCP Student in an Organized Health Care Education/Training Program; Referring Provider Obstetrics & Gynecology; Visit Provider Obstetrics & Gynecology
DX: Z34.82 Encounter for supervision of other normal pregnancy, second trimester (principal); Z3A.26 26 weeks gestation of pregnancy
CPT/HCPCS: 36415; 82950; 85014; 85018

== ENCOUNTER → 2022-09-09 09:20 | Outpatient (CLI) | payer OTHER, SELFPAY ==
[2022-09-10 08:02] LABS: Strep Grp B PCR NEG for Grp B Strep
== END ==
PROVIDERS: PCP Student in an Organized Health Care Education/Training Program; Visit Provider Specialist
DX: Z34.83 Encounter for supervision of other normal pregnancy, third trimester (principal); Z3A.28 28 weeks gestation of pregnancy
CPT/HCPCS: 87653

== ENCOUNTER → 2022-10-27 15:08 | Outpatient (CLI) | payer OTHER, SELFPAY ==
[2022-10-28 13:38] LABS: Strep Grp B PCR NEG for Grp B Strep
== END ==
PROVIDERS: PCP Student in an Organized Health Care Education/Training Program; Visit Provider Obstetrics & Gynecology
DX: Z34.83 Encounter for supervision of other normal pregnancy, third trimester (principal); Z3A.35 35 weeks gestation of pregnancy
CPT/HCPCS: 87653

== ENCOUNTER 2022-11-09 05:40 | Outpatient (CLI) | payer OTHER, SELFPAY | END 2022-11-09 06:37 | disposition home or self-care (01) | LOC: OB 11-12 11:06 | PROVIDERS: PCP Student in an Organized Health Care Education/Training Program; Referring Provider Obstetrics & Gynecology; Visit Provider Obstetrics & Gynecology | DX: O47.1 False labor at or after 37 completed weeks of gestation (principal); Z3A.37 37 weeks gestation of pregnancy | CPT/HCPCS: 59025; G0378; G0379 ==

== ENCOUNTER → 2022-11-11 08:37 | Outpatient (CLI) | payer OTHER, SELFPAY ==
[2022-11-11 08:54] LABS: Add Manual Diff / Slide Review NO; Basophils Absolute Auto 0 /uL (0-100); Basophils Percent Auto 0.4 % (0-2); Eosinophils Absolute Auto 100 /uL (0-450); Eosinophils Percent Auto 1.4 % (2-4); Hematocrit 33.9 % (36-46); Hemoglobin 11.7 g/dL (12.0-16.0); Lymphocytes Absolute Auto 1900 /uL (1100-4500); Lymphocytes Percent Auto 19.6 % (25-40); Mean Corpuscular HGB Conc 34.6 % (30-36); Mean Corpuscular Hemoglobin 31.3 PG (26-34); Mean Corpuscular Volume 90.4 fL (80-100); Monocytes Absolute Auto 700 /uL (0-900); Monocytes Percent Auto 6.7 % (3-14); Neutrophils Absolute Auto 7100 /uL (1500-7000); Neutrophils Percent Auto 71.9 % (50-75); Platelet Count 258 X10^3/uL (150-400); Red Blood Cell Count 3.75 X10^6/uL (4.0-5.2); Red Cell Distribution Width 14.3 % (11.6-14.8); White Blood Cell Count 9.9 X10^3/uL (4.5-11.0)
[2022-11-11 09:16] LABS: Alanine Aminotransferase 16 IU/L (<35); Aspartate Aminotransferase 22 IU/L (14-36); BUN Creatinine Ratio 8.3 (6-22); Blood Urea Nitrogen 5 mg/dL (7-17); Estimated Glomerular Filt Rate > 60 mL/min (>60); Uric Acid 5.8 mg/dL (2.5-6.2)
[2022-11-11 10:19] LABS: Creatinine Urine Random 96.4 mg/dL; Protein (Total) Urine Random 7 mg/dL (0-12); Protein Creatinine Ratio Urine 0.07 GRAM/24H
== END ==
PROVIDERS: PCP Student in an Organized Health Care Education/Training Program; Referring Provider Obstetrics & Gynecology; Visit Provider Obstetrics & Gynecology
DX: O16.3 Unspecified maternal hypertension, third trimester (principal); Z3A.37 37 weeks gestation of pregnancy
CPT/HCPCS: 36415; 82565; 82570; 84156; 84450; 84460; 84520; 84550; 85025

== ENCOUNTER 2022-11-21 00:56 | Inpatient (IN) | payer OTHER, SELFPAY ==
[2022-11-21] VITALS (7 sets, daily range): BP systolic 110–142; BP diastolic 73–92; PULSE 91–104; RESP 16–18; TEMP 2.2–36.4; O2SAT 97–100
[2022-11-21 01:38] LABS: Add Manual Diff / Slide Review NO; Basophils Absolute Auto 100 /uL (0-100); Basophils Percent Auto 0.5 % (0-2); Eosinophils Absolute Auto 100 /uL (0-450); Eosinophils Percent Auto 0.8 % (2-4); Hematocrit 35.7 % (36-46); Hemoglobin 12.2 g/dL (12.0-16.0); Lymphocytes Absolute Auto 4000 /uL (1100-4500); Mean Corpuscular HGB Conc 34.2 % (30-36); Mean Corpuscular Hemoglobin 30.7 PG (26-34); Mean Corpuscular Volume 89.7 fL (80-100); Monocytes Absolute Auto 1000 /uL (0-900); Monocytes Percent Auto 7.3 % (3-14); Neutrophils Absolute Auto 9000 /uL (1500-7000); Neutrophils Percent Auto 63.4 % (50-75); Platelet Count 321 X10^3/uL (150-400); Red Blood Cell Count 3.99 X10^6/uL (4.0-5.2); White Blood Cell Count 14.2 X10^3/uL (4.5-11.0)
[2022-11-21 01:43] LABS: Aspartate Aminotransferase 22 IU/L (14-36); BUN Creatinine Ratio 10.9 (6-22); Blood Urea Nitrogen 6 mg/dL (7-17); Estimated Glomerular Filt Rate > 60 mL/min (>60); Uric Acid 5.1 mg/dL (2.5-6.2)
[2022-11-21] MEDS: LACTATED RINGERS 1,000 ML 100 ML IV ×4 (02:30→16:35)
[2022-11-21] MEDS: FENT 2MCG/ML BUPIV 0.125% EPI 200 MCG/100 ML PLAST..BAG 8 MCG EPIDURAL ×3 (03:34→14:24)
--- NOTE | 2022-11-21 06:54 | P.HPOB_ITS ---
OB HPI Date/Time Date of admission: 11/21/22 Date Patient Seen: 11/21/22 Time Patient Seen: 01:16 History of Present Condition Chief complaint: LABOR GRACE Calculator Estimated Delivery Date Method Current WG Current Estimate 11/27/22 Ultrasound #1 39w 1d Other Estimates 10/28/22 LMP (Certain) 43w 3d 11/24/22 Ultrasound #2 39w 4d Estimated Gestational Age (weeks): 39.1 : 3 Para: 1 Narrative: 32YO here for evaluation of labor. Awoke at 0030 with leaking clear fluid, followed shortly after by regular contractions. now genna painfully every 2 minutes and requesting and epidural. continues to leak clear fluid. +FM. No vaginal bleeding. No headache, vision changes, RUQ pain or increased edema. care with complicated by cervical shortening and contractions treated with nifedipine. Supportive family at her side. care: good care, initiated at week # (7), number of visits (17) and pounds weight gain (33) Dating criteria OB: LMP confirmed by 1st trimester US Ultrasounds: normal mid trimester US Obstetrical complications: other (shortened cervix at 30wks, on nifedipine) Preadmission Labs Last OB Lab Results: Blood Type B Positive 11/21/22 01:20 Antibody Screen Negative 11/21/22 01:20 Hematocrit 35.7 % (36-46) L 11/21/22 01:20 Hemoglobin 12.2 g/dL (12.0-16.0) 11/21/22 01:20 Hepatitis B Surface Antigen Negative s/c (NEGATIVE) 04/29/22 11 :20 Hepatitis C Antibody Negative s/c (NEGATIVE) 04/29/22 11:20 Rubella Antibody 91.0 IU/mL (>15) 04/29/22 11:20 Varicella-Zoster IgG Antibody 696 index (Immune >165) 04/29/22 11:20 Glucose 1 Hour 96 mg/dL (76-139) 08/13/22 15:40 Group B Streptococcus (PCR) Neg for grp b strep 10/27/22 15:08 Prior (ies) Past Pregnancies Del. Date GA/Weeks Labor Lgth Wt Sex Route Outcome Anesthesia Place Delv Breastfeed Preg Comp Name 07/23/14 8.5 elective elective 12/30/20 30 48 1.814 kg Male vaginal live - [facility] Still going as of 04/09/22 delivery [place] Delivery Date: 07/23/14 Last Updated by: Mary Jane Aranda R.N. *Unsure of exact dates. *Struggled after : in therapy. Evaluation Evaluation Baseline heart rate: 120 Variability: Moderate (11-25) monitor accelerations: Present Monitor Decelerations: Variable Contraction Frequency (minutes): 2 Uterine Contraction Intensity: Strong/Firm Status: Category ll (overall reassuring) Dilation (cm): 5 Effacement (%): 100 Dilation: >/=5 cm Effacement: >/=80% station: -1 Position of cervix: posterior Consistency: soft Velez score: 10 Non-invasive Membranes Rupture Test: positive [facility] Medical History ADHD Anxiety Degeneration of lumbar intervertebral disc Disorder of ovulation Polycystic ovaries Surgical History History of elective (~07/2014) Family History Mother No known health problems Preeclampsia Placental abnormality Father Overdose Adopted Bipolar disorder Substance abuse Grandmother Breast cancer Grandfather Diabetes mellitus Myocardial infarction Family/Other Gestational diabetes PCOS (polycystic ovarian syndrome) Hypertension Family/Other Addiction to drug Brother Mental health problem Social History marital status: number of children: 1 household members: spouse and children lives independently: Yes pets and animals: Yes (X 2 cats and discussed : aware of toxo) education level: vocational occupational status: employed and previously employed current occupational exposures/hazards: No special marques needs: No travel history: over 6 months ago seatbelt use: always water heater temp set < 120 deg: Yes working smoke detector in home: Yes fire extinguisher in home: Yes carbon monox detector in home: Yes firearms in home: No do you feel safe at home: Yes Smoking Status: Never smoker Smokeless tobacco user: dissolvable tobacco (Vape X 3 years : Quit X 2 years ago. ) second hand exposure: No alcohol intake: former (2 drinks/night when not ) substance use type: does not use during the past year weight has: remained stable well-balanced diet: daily or most days daily servings fruits/ve-4 caffeine: Yes Type(s) of exercise: walking frequency: daily duration: 30-45 minutes/day Meds Home Medications and Allergies Home Medications Medication Instructions Recorded Confirmed Type docosahexaenoic acid 450 mg 450 mg PO DAILY 04/09/22 11/11/22 History capsule (Algal-900 DHA) prenat.vits,lin,sqq-vclc-hdbcf 1 tab PO DAILY 04/09/22 11/11/22 History progesterone micronized 200 mg 200 mg PO BEDTIME 14 days #30 caps 06/19/22 11/11/22 Rx capsule (Prometrium) Allergies Allergy/AdvReac Type Severity Reaction Status Date / Time latex [LATEX] Allergy Unknown RASH Verified 11/21/22 02:59 Review of Systems Review of Systems ROS: Yes All systems reviewed with the patient and are negative except as otherwise documented OB Exam Vital signs Blood Pressure: 142/92 Pulse Rate: 91 Temperature: 35.9 F Resp Effort & Inspection: normal respiratory effort and able to speak in complete se ntences Cardio Rate: regular rate Rhythm: regular rhythm Presentation: vertex Objective Labs 11/21/22 01:20 11/21/22 01:20 Labs: Laboratory Results - last 24 hr 11/21/22 11/21/22 11/21/22 01:20 01:20 01:20 WBC 14.2 H RBC 3.99 L Hgb 12.2 Hct 35.7 L MCV 89.7 MCH 30.7 MCHC 34.2 RDW 14.0 Plt Count 321 Neut % (Auto) 63.4 Lymph % (Auto) 28.0 Jerauld % (Auto) 7.3 Eos % (Auto) 0.8 L Baso % (Auto) 0.5 Neut # (Auto) 9000 H Lymph # (Auto) 4000 Jerauld # (Auto) 1000 H Eos # (Auto) 100 Baso # (Auto) 100 BUN 6 L Creatinine 0.55 Estimated GFR > 60 BUN/Creatinine Ratio 10.9 Uric Acid 5.1 AST 22 Blood Type B Positive Antibody Screen Negative Assessment and Plan Assessment and Plan Assessment and Plan narrative: A: Term primipara Active labor SROM x 1 hour without sx of infection Elevated BP without dx of HTN No indication for GBS prophylaxis Cat II FHR, overall reassuring P: Admit routine orders. Epidural ARMANI. Preeclampsia panel drawn and negative. Expectant management of labor. Anticipate NSVB. Reassess in 4-6 hours or sooner, PRN.
[2022-11-21] MEDS: FUROSEMIDE 40 MG/4 ML VIAL 10 MG IV (12:02)
[2022-11-21] MEDS: OXYTOCIN PREMIX 30 UNIT/500 ML PLAST..BAG IV (13:38)
[2022-11-21] MEDS: LABETALOL 20 MG/4 ML SYRINGE 5 MG IV (15:34)
--- NOTE | 2022-11-21 15:40 | PM.OBPNLAB ---
Date/Time Date Patient Seen: 11/21/22 Time Patient Seen: 11:00 Pain Control Pain control: epidural Pelvic Exam Dilation (cm): 10 Effacement (%): 100 station: -1 Amniotic membrane status: Ruptured (0700 clear fluid) Comments: OP by digital exam and confirmed by u/s Contractions Contractions on admission: regular Monitor mode: External Contraction frequency (min): 3 Contraction duration (min): 1 Contraction pattern: Regular Contraction intensity: Strong/Firm Status status: Category ll (overall reassuring) Heart Rate Baseline: 120 Monitor Accelerations: Present Monitor Decelerations: Absent Monitor Variability: Moderate Assessment and Plan Assessment: active labor Comments: Plan: Side to side with peanut ball Hands and knees No pushing for now
--- NOTE | 2022-11-21 15:40 | PM.OBPNLAB ---
Date/Time Date Patient Seen: 11/21/22 Time Patient Seen: 15:40 Pain Control Pain control: epidural Pelvic Exam Dilation (cm): 10 Effacement (%): 100 station: -1 Amniotic membrane status: Ruptured Comments: Pt has pushed x 1 hr, stopped and tried position changes, then pushed x 2 more hours Contractions Monitor mode: External Contraction frequency (min): 3 Contraction duration (min): 1 Contraction pattern: Regular Contraction intensity: Strong/Firm Status status: Category ll (overall reassuring) Heart Rate Baseline: 120 Monitor Accelerations: Present Monitor Decelerations: Absent Monitor Variability: Moderate Assessment and Plan Assessment: active labor Plan: Comments: Assessment: 32-year-old 3 para 1 at 39 and 1/7 weeks gestation in active labor Stage II arrest of labor Direct occiput posterior presentation Plan: Primary low-transverse section The risks, benefits, and alternatives to the procedure were explained to the patient. The risks including bleeding, infection, injury to the bowel, bladder, or ureters. She understands these risks and agrees to proceed. A full par Q was held and consent form was signed.
--- NOTE | 2022-11-21 15:40 | PM.PREOP ---
Pre-operative Note COVID-19 Criteria for continued procedure: Non-surgical alternatives not available or appropriate per current SOC Interval Note History & Physical reviewed/Exam performed by Physician: Yes Changes to H&P: No H&P completed within 30 days and has changed as indicated here:: 11/21/22
[2022-11-21] MEDS: CEFAZOLIN 2 GM/100 ML PREMIX 100 ML IV (16:02)
[2022-11-21] MEDS: AZITHROMYCIN 500 MG in DEXTROSE 5% IN WATER 250 ML 250 MG IV (16:07)
--- NOTE | 2022-11-21 16:39 | SUR.OPER ---
Supine on Padded OR bed, head on pillow, safety belt at thigh, arms secured on padded arm boards at <90 degrees abduction. Bump under right buttock. Legs uncrossed with pillow under knees, gel pad to heels, tape over blanket to lower legs. Gel pad placed between patients posterior upper leg and urinary catheter tubing.
--- NOTE | 2022-11-21 17:38 | PM.OBCS.1 ---
Operative Date/Time/Diagnoses Date of procedure: 11/21/22 Time of procedure: 17:38 Pre-op diagnosis: Stage 2 arrest of labor Direct occiput posterior presentation Post-op diagnosis: same Procedure & Clinicians Procedure: Primary low-transverse section Same procedure as scheduled: Yes Indications: Stage II arrest of labor Surgeon: Zenaida Fabian Environmental Studies Department Chair: Teja Allen Reason for Environmental Studies Department Chair: The dietitian assistant was necessary to retract upon entry into the abdomen and uterus. He assisted with delivery of the with fundal pressure. He assisted with closure with retraction and clipping of suture. Anesthesia Type: Epidural Operative Notes Findings: Live female infant in the direct OP presentation Normal uterine, tubes and ovaries Edema of the bladder Narrow pelvic inlet Closure Type: primary Specimen(s): cord blood and placenta Intraoperative meds administered: Duramorph and Pitocin Applied: Catheter (To continuous drainage) Estimated Blood Loss (mL): 1,000 Blood products transfused: none Procedure in detail: The patient was taken to the operating room where she was placed in the dorsal supine position with a leftward tilt. A bolus was placed through the epidural. The head was elevated from below using a sterile glove. She was prepped and draped in the usual sterile fashion. A timeout was performed. After epidural analgesia was found to be adequate, a Pfannenstiel skin incision was made 2 fingerbreadths above the pubic symphysis and carried through to the underlying layer fascia. The fascia was nicked in the midline, and the incision extended bilaterally with the Holley scissors. The superior aspect of the fascial incision was grasped with a Armani clamps, elevated, and the underlying rectus muscles dissected off sharply and bluntly. Attention was then turned to the inferior aspect of this incision which in a similar fashion was grasped with a [place] clamps, elevated, and the underlying rectus muscles dissected off sharply and bluntly. The rectus muscles were in the midline. The peritoneum was identified, grasped between 2 hemostats, and entered sharply with the Metzenbaum scissors. This incision was extended superiorly and inferiorly with good visualization of the bladder. The bladder blade was inserted. The vesicouterine peritoneum was identified, grasped with the pickup, and entered sharply with the Metzenbaum scissors. This incision was extended bilaterally, and the bladder flap was created digitally. The bladder blade was reinserted. The lower uterine segment was incised in a transverse fashion with the scalpel. Upon entering the amniotic sac there was a small amount of clear amniotic fluid. The infant's head was delivered without difficulty. The nose and mouth were suctioned with bulb suction. The remainder of the body delivered without difficulty. The cord was double clamped and cut. The was handed off to waiting RN and RT. The placenta was delivered manually. The uterus was cleared of all clots and debris. The uterine incision was repaired with #1 chromic in a running interlocking fashion, and a second layer the same suture was used for an imbricating layer. There was bleeding noted from the right edge of the incision and 2 [id number] sutures were placed for hemostasis. The tubes and ovaries were examined and were found to be normal. The gutters were cleared of all clots and debris. The bladder flap was reapproximated using 2-0 Vicryl in a running fashion. The parietal peritoneum was closed using 2-0 Vicryl in a running fashion. The fascia was reapproximated using 0 Vicryl in a running fashion. The subcutaneous layer was copiously irrigated with warm normal saline. 6 simple interrupted sutures of 3-0 Vicryl were placed to reapproximate the subcutaneous layer. The skin was closed with 4-0 undyed Vicryl in a subcuticular fashion. Steri-Strips were placed. An Aquacel dressing was placed. The uterus was expressed of a moderate amount of old blood. Sponge, lap, and instrument counts were correct x-2. The patient tolerated the procedure well, and was taken to PACU in stable condition. Complications: none Baby 1: Gender: Female Presentation: vertex Position: Occiput Posterior Placental Delivery Description: Expressed Cord Vessel Description: 3 Vessels score (1 min): 9 score (5 min): 9 weight: 9 lb 1 oz Post-operative Condition: stable Disposition: PACU Aftercare: routine postop
[2022-11-21] MEDS: MORPHINE 4 MG/ML INJ 2 MG IV (17:56)
[2022-11-21] MEDS: OXYCODONE IR 10 MG TABLET PO ×2 (18:57→22:56)
[2022-11-21 19:14] LABS: Hematocrit 28.7 % (36-46); Hemoglobin 9.9 g/dL (12.0-16.0); Mean Corpuscular HGB Conc 34.5 % (30-36); Mean Corpuscular Volume 89.8 fL (80-100); Platelet Count 258 X10^3/uL (150-400); White Blood Cell Count 26.8 X10^3/uL (4.5-11.0)
[2022-11-21 19:15] LABS: Add Manual Diff / Slide Review YES
[2022-11-21 19:20] LABS: Alanine Aminotransferase 13 IU/L (<35); BUN Creatinine Ratio 10.8 (6-22); Blood Urea Nitrogen 11 mg/dL (7-17); Calcium 7.5 mg/dL (8.4-10.2); Carbon Dioxide 21 mmol/L (22-32); Chloride 102 mmol/L (98-107); Estimated Glomerular Filt Rate > 60 mL/min (>60); Glucose 94 mg/dL (70-100)
[2022-11-21 19:21] LABS: Uric Acid 5.9 mg/dL (2.5-6.2)
[2022-11-21 19:35] LABS: HEMOLYSIS < 15 (0-50); Potassium 4.3 mmol/L (3.4-5.1); Sodium 128 mmol/L (137-145)
[2022-11-21 19:45] LABS: Neutrophils Absolute Manual 21708 /uL (3000-5900); RBC Morphology Normal Morphology; Total Cells Counted 100
[2022-11-22] MEDS: MORPHINE 2 MG/ML INJ IV (01:34)
[2022-11-22] MEDS: OXYCODONE IR 10 MG TABLET PO ×4 (04:30→21:02)
[2022-11-22] MEDS: ACETAMINOPHEN 325 MG TABLET 650 MG PO ×3 (06:21→21:03)
[2022-11-22 08:17] LABS: Add Manual Diff / Slide Review NO; Basophils Absolute Auto 0 /uL (0-100); Basophils Percent Auto 0.1 % (0-2); Eosinophils Absolute Auto 100 /uL (0-450); Eosinophils Percent Auto 0.6 % (2-4); Hematocrit 24.4 % (36-46); Hemoglobin 8.3 g/dL (12.0-16.0); Lymphocytes Absolute Auto 2700 /uL (1100-4500); Lymphocytes Percent Auto 14.4 % (25-40); Mean Corpuscular HGB Conc 33.9 % (30-36); Mean Corpuscular Hemoglobin 30.6 PG (26-34); Mean Corpuscular Volume 90.2 fL (80-100); Monocytes Absolute Auto 1300 /uL (0-900); Monocytes Percent Auto 6.9 % (3-14); Neutrophils Absolute Auto 14400 /uL (1500-7000); Platelet Count 229 X10^3/uL (150-400); Red Blood Cell Count 2.71 X10^6/uL (4.0-5.2); Red Cell Distribution Width 14.2 % (11.6-14.8); White Blood Cell Count 18.5 X10^3/uL (4.5-11.0)
[2022-11-22] MEDS: PRENATAL VIT,CALC/IRON/FOLIC 1 TABLET 1 TAB PO (09:17)
[2022-11-22] MEDS: DOCUSATE 100 MG CAPSULE 200 MG PO ×2 (09:17→21:01)
[2022-11-22] MEDS: LANOLIN OINT 7 GM 1 APPLIC TOP (09:17)
[2022-11-22 10:20] VITALS: TEMP 36.7
[2022-11-22] MEDS: KETOROLAC 30 MG/ML VIAL IV ×3 (10:20→22:30)
--- NOTE | 2022-11-22 12:04 | P.PNOB_ITS ---
Subjective - OB Subjective Patient comments: incisional pain, tolerating diet and other (hip pain) baby status: doing well and nursing well feeding status: exclusively breast feeding Date Patient Seen: 11/22/22 Time Patient Seen: 12:12 Interval history: POD#1 s/p Primary low transverse C section for Stage 2 arrest of labor. Voided without the catheter. Tolerating diet. Out of bed to chair Exam Vital Signs (past 8 hours): - 11/22/22 10:20 Temperature 98.0 F Oxygen Delivery Method Room Air Narrative Exam Narrative: Generally: Sitting up in chair, NAD Lungs: CTA bilat CV: RRR. Fundus: Firm at U Incision: C/D/I with Aquacel Ext: 1+ edema Objective Labs 11/22/22 08:10 11/21/22 18:40 Labs: Laboratory Results - last 24 hr 11/21/22 11/21/22 11/21/22 18:40 18:40 18:40 WBC 26.8 H D RBC 3.20 L Hgb 9.9 L Hct 28.7 L MCV 89.8 MCH 31.0 MCHC 34.5 RDW 14.0 Plt Count 258 Neut % (Auto) Not Reportable Lymph % (Auto) Not Reportable [place] % (Auto) Not Reportable Eos % (Auto) Not Reportable Baso % (Auto) Not Reportable Neut # (Auto) Lymph # (Auto) Not Reportable [place] # (Auto) Not Reportable Eos # (Auto) Baso # (Auto) Not Reportable Total Counted 100 Seg Neutrophils % 79.0 H Band Neutrophils % 2.0 L Lymphocytes % (Manual) 10.0 L Monocytes % (Manual) 9.0 Neutrophils # (Manual) 13476 H RBC Morphology Normal morphology Sodium 128 L Potassium 4.3 Chloride 102 Carbon Dioxide 21 L BUN 11 Creatinine 1.02 Estimated GFR > 60 BUN/Creatinine Ratio 10.8 Glucose 94 Uric Acid 5.9 Calcium 7.5 L ALT 13 11/22/22 08:10 WBC 18.5 H RBC 2.71 L Hgb 8.3 L Hct 24.4 L MCV 90.2 MCH 30.6 MCHC 33.9 RDW 14.2 Plt Count 229 Neut % (Auto) 78.0 H Lymph % (Auto) 14.4 L [place] % (Auto) 6.9 Eos % (Auto) 0.6 L Baso % (Auto) 0.1 Neut # (Auto) 12955 H Lymph # (Auto) 2700 [place] # (Auto) 1300 H Eos # (Auto) 100 Baso # (Auto) 0 Total Counted Seg Neutrophils % Band Neutrophils % Lymphocytes % (Manual) Monocytes % (Manual) Neutrophils # (Manual) RBC Morphology Sodium Potassium Chloride Carbon Dioxide BUN Creatinine Estimated GFR BUN/Creatinine Ratio Glucose Uric Acid Calcium ALT Assessment & Plan Plan day: 1 Comments: Elevate the pelvis Ambulate Lasix later today or tomorrow Repeat CBC and BMP later today Time Spent With Patient Time: Total time spent is greater than 50% in coordination of care (as documented) at patient's floor/unit and/or counseling patient: Time with patient: 15-24 minutes
[2022-11-22 15:54] LABS: Hematocrit 25.1 % (36-46); Hemoglobin 8.5 g/dL (12.0-16.0); Mean Corpuscular Hemoglobin 30.6 PG (26-34); Mean Corpuscular Volume 90.1 fL (80-100); Platelet Count 247 X10^3/uL (150-400); Red Blood Cell Count 2.78 X10^6/uL (4.0-5.2); Red Cell Distribution Width 13.8 % (11.6-14.8); White Blood Cell Count 18.6 X10^3/uL (4.5-11.0)
[2022-11-22 16:07] LABS: BUN Creatinine Ratio 10.1 (6-22); Blood Urea Nitrogen 9 mg/dL (7-17); Calcium 7.9 mg/dL (8.4-10.2); Carbon Dioxide 26 mmol/L (22-32); Chloride 102 mmol/L (98-107); Estimated Glomerular Filt Rate > 60 mL/min (>60); Glucose 101 mg/dL (70-100); HEMOLYSIS < 15 (0-50); Potassium 4.2 mmol/L (3.4-5.1); Sodium 130 mmol/L (137-145)
[2022-11-23] MEDS: OXYCODONE IR 5 MG TABLET PO ×3 (02:01→10:45)
[2022-11-23] MEDS: ACETAMINOPHEN 325 MG TABLET 650 MG PO ×3 (02:57→09:36)
[2022-11-23] MEDS: KETOROLAC 30 MG/ML VIAL IV (04:34)
[2022-11-23] MEDS: DOCUSATE 100 MG CAPSULE 200 MG PO (09:36)
[2022-11-23] MEDS: PRENATAL VIT,CALC/IRON/FOLIC 1 TABLET 1 TAB PO (09:36)
[2022-11-23] MEDS: IBUPROFEN 600 MG TABLET PO (12:23)
[2022-11-23] MEDS: FUROSEMIDE 20 MG TABLET PO (12:24)
--- NOTE | 2022-11-23 13:23 | P.DS_ITS ---
Discharge Providers Provider Date of admission: 11/21/22 00:56 Discharge Date: 11/23/22 Primary care physician: Amy Ramirez MD Consults: 11/21/22 01:17 Consult to Anesthesiology Urgent Comment: Consulting Provider: Anesthesiologist Reason for consultation: Epidural 11/21/22 18:04 Consult to Wage And Salary Administrator Routine Comment: Discharge provider: Zenaida Fabian MD Summary Hospital Course Date Patient Seen: 11/23/22 Time Patient Seen: 11:40 Diagnoses: 39-1/7 weeks gestation Stage II arrest of labor Direct occiput posterior presentation Primary low-transverse section Hospital Course: Patient is a 32-year-old 3 para 2 who presented on November 21, 2022 in active labor at 39-,1/7 weeks gestation. She received an epidural for pain management. She had a spontaneous rupture of membranes with clear amniotic fluid at 7:00 a.m.. She was complete and pushed for an hour. An exam was done and baby was thought to be in the occiput posterior presentation and this was confirmed by ultrasound. Position changes with [id number] with peanut ball and on hands and knees were performed. The head was lower in the pelvis. Pushing was restarted. She pushed for another 2 hours without any further descent of the head. The patient underwent a primary low-transverse section without complication. She was found to have a very narrow pelvic inlet. Baby was found to be direct occiput posterior. She had some low urine output throughout the day prior to the section. The Rudolph catheter was flushed and then eventually replaced. She had 450 cc of urine in the bag immediately. At the time of the section the fluid was still a little bloody and this had begun to clear up by the time she went to the recovery room. She had significant swelling of the lower extremities and perineum. She was given 1 dose of 20 mg of Lasix. Due to a few elevated blood pressures, preeclampsia labs were performed and were normal. Were repeated again and were normal. Her hematocrit dropped to 24 due to blood loss of a 1000 cc in the operating room. She was asymptomatic. She was discharged home on postop day #2. Prescription for oxycodone was given. Peripartum Data Delivery Method: Section Procedures: Epidural analgesia Primary low-transverse section complications: none 1: Gender: Female Disposition of : home Status at Discharge Cognitive/behavioral status at discharge: oriented Functional status at discharge: independent ambulation Overall status at discharge: patient is progressing back to baseline Time Spent with Patient Time attestation: Total time spent providing and/or coordinating discharge services: Time spent: Less than 30 minutes Objective Labs 11/22/22 15:48 11/22/22 15:48 Labs: Laboratory Results - last 24 hr 11/22/22 11/22/22 15:48 15:48 WBC 18.6 H RBC 2.78 L Hgb 8.5 L Hct 25.1 L MCV 90.1 MCH 30.6 MCHC 34.0 RDW 13.8 Plt Count 247 Sodium 130 L Potassium 4.2 Chloride 102 Carbon Dioxide 26 BUN 9 Creatinine 0.89 Estimated GFR > 60 BUN/Creatinine Ratio 10.1 Glucose 101 H Calcium 7.9 L Exam Vital Signs (past 8 hours): Oxygen Delivery Method Room Air Narrative Exam Narrative: Generally: Patient is sitting up in bed, holding infant, no acute distress Fundus: Firm at U Incision: Clean dry and intact with Aquacel dressing Extremities: 1+ pitting edema to knees, 1+ DTRs, negative Homans Discharge Plan Discharge Plan Patient Disposition: Home Provider Discharge Comment: Call with fever, chills, redness or drainage around the incision, bleeding vaginally more than a pad in an hour Call with headache, blurred vision, mid to right upper quadrant pain Tylenol 650 mg every 6 hours as needed Ibuprofen 600 mg every 6 hours as needed Oxycodone 5 mg every 4 hours as needed Push oral fluids Stool softeners as needed Discharge orders & Medications Prescriptions: New oxycodone 5 mg tablet 5 mg PO Q4H PRN (Reason: pain) Qty: 20 0RF Continued prenat.vits,lin,[id number] Tablet 1 tab PO DAILY Algal-900 DHA 450 mg capsule 450 mg PO DAILY Discontinued progesterone micronized [Prometrium] 200 mg capsule 200 mg PO BEDTIME 14 Days Qty: 30 5RF Follow up/Referrals: Zenaida Fabian MD [Physician] - (My office will call on Thursday to schedule Aquacel removal on Thursday) Diet/Activity/Treatments Diet: Regular Activity: No heavy lifting Nothing in the vagina for 6 weeks Elevate legs and feet when sitting Skin/Wound/Dressing Care Report to your healthcare provider any signs of infection, such as:: chills, fever, increased pain, unusual drainage and unusual redness Dressing: Do not remove Visit Report/Discharge Packet Instructions: DI for , DI for Prescription Opioid Use Stand Alone Forms: Patient Portal/API, Stroke Signs & Symptoms Discharge Data Primary Care Provider: Amy Ramirez Attending Provider: Dodie Ivan Admofelia Date/Time: 11/21/22 00:56
[2022-11-23 13:35] VITALS: BP 113/80; PULSE 102; RESP 18; TEMP 36.7
== END 2022-11-23 13:22 | disposition home or self-care (01) | DRG 787 ==
PROVIDERS: Obstetrics & Gynecology; Admitting Provider Nurse Practitioner Obstetrics & Gynecology; PCP Student in an Organized Health Care Education/Training Program; Referring Provider Nurse Practitioner Obstetrics & Gynecology; Visit Provider Nurse Practitioner Obstetrics & Gynecology
PROC: 10D00Z1 Extraction of Products of Conception, Low, Open Approach (ICD-10-PCS; CPT 59514; principal; 2022-11-21 16:00)
DX: O62.1 Secondary uterine inertia (principal); O26.873 Cervical shortening, third trimester; O32.8XX0 Maternal care for other malpresentation of fetus, not applicable or unspecified; Z3A.39 39 weeks gestation of pregnancy; Z37.0 Single live birth; O75.89 Other specified complications of labor and delivery; R03.0 Elevated blood-pressure reading, without diagnosis of hypertension
CPT/HCPCS: 36415; 59050; 59510; 59514; 76815; 80048; 84450; 84460; 84550; 85007; 85025; 85027; 86850; 86900; 86901; G0378; G0379; J0690; J1885; J1940; J2270; J2274; J2405; J2590; J3010

== ENCOUNTER → 2025-03-08 07:49 | Outpatient (CLI) | payer BC, SELFPAY ==
--- NOTE | 2025-03-08 07:51 | DI.US.S_ITS ---
PROCEDURE: US ABDOMEN LIMITED INDICATIONS: ABDOMINAL BLOATING X 1 WEEK TECHNIQUE: Real-time scanning was performed of the abdominal and retroperitoneal organs, with image documentation. COMPARISON: None. FINDINGS: Liver: Liver is normal in size and homogeneous in echotexture. Gallbladder: Small gallbladder polyps are seen measuring 3 mm and 2 mm respectively. No gallstones. No wall thickening. No pericholecystic edema. Negative sonographic Dela Cruz's sign. Biliary ducts: Intrahepatic bile ducts are non-dilated. Extrahepatic bile duct caliber measures five mm. Normal is 6-7 mm or less in diameter, or 10 mm or less post-cholecystectomy. Pancreas: Visualized portions of the pancreas are sonographically normal. Miscellaneous: No free abdominal fluid. IMPRESSION: 1. No acute sonographic abnormality in the right upper quadrant. 2. Small gallbladder polyps measuring 2-3 mm, which do not require dedicated imaging follow-up based on their size. Approved by: Salvador Wade M.D. on 03/08/2025 at 10:16
== END ==
PROVIDERS: PCP Family Medicine; Referring Provider Family Medicine; Visit Provider Family Medicine
DX: K82.4 Cholesterolosis of gallbladder (principal); R63.4 Abnormal weight loss; L29.9 Pruritus, unspecified; R14.0 Abdominal distension (gaseous)
CPT/HCPCS: 76705